=== PATIENT | female | born 1970 | race Caucasian/White ===

== ENCOUNTER → 2018-08-02 14:57 | Outpatient (CLI) | payer OTHER, SELFPAY ==
--- NOTE | 2018-08-02 | DI.MG.S_ITS ---
BILATERAL DIGITAL SCREENING MAMMOGRAM 3D/2D WITH CAD: 08/02/2018 CLINICAL: Routine screening. Family history of breast cancer. Comparison is made to exams dated: 07/26/2017 mammogram, 07/21/2016 mammogram, and 07/16/2015 mammogram - [facility]. The tissue of both breasts is heterogeneously dense. This may lower the sensitivity of mammography. Current study was also evaluated with a Computer Aided Detection (CAD) system. No significant masses, calcifications, or other findings are seen in either breast. There has been no significant interval change. IMPRESSION: NEGATIVE There is no mammographic evidence of malignancy. A 1 year screening mammogram is recommended. This exam was interpreted at Station ID: [id number]. NOTE: For mammograms, a report in lay terms will be sent to the patient. Approximately 15% of breast malignancies will not be visualized mammographically. In the management of a palpable breast mass, a negative mammogram must not discourage biopsy of a clinically suspicious lesion. Electronically Signed By: Kan fitch/kalpesh:08/02/2018 15:58:18 letter sent: Normal Exam ACR BI-RADS Category 1: Negative [id number]
== END ==
DX: Z12.31 Encounter for screening mammogram for malignant neoplasm of breast (principal); Z80.3 Family history of malignant neoplasm of breast
CPT/HCPCS: 77063; 77067

== ENCOUNTER 2019-02-22 06:40 | Day surgery (SDC) | payer OTHER, SELFPAY ==
[2019-02-12 08:31] VITALS: BMI 30.4
[2019-02-22] VITALS (11 sets, daily range): BP systolic 100–129; BP diastolic 53–77; PULSE 54–72; RESP 16–18; TEMP 36.4–36.8; O2SAT 90–100; BMI 30.4
--- NOTE | 2019-02-22 | PATH_ITS ---
[facility] Accession Number: [id number] . 01 Material submitted: . gallbladder - GALLBLADDER . 02 Diagnosis: Gallbladder, Laparoscopic Cholecystectomy: Chronic cholecystitis, cholesterolosis, and cholelithiasis. MRV/02/27/2019 . 02 Electronically signed: . Gwendolyn Denton MD, Pathologist NPI- [id number] . 01 Gross description: . Received in formalin, labeled gallbladder, is an intact gallbladder (length-8.2 cm, diameter-3.7 cm) with gonsalez-blue smooth shiny serosa and a patent cystic duct. No lymph nodes are identified. The lumen contains green watery bile and multiple pale yellow, friable round calculi (1.2 x 4.1 x 0.8 cm in aggregate). The mucosa is madrid-green smooth and flat. The wall is up to 0.1 cm thick. No nodules, masses or lesions are identified. Section code: (A1) cystic duct resection margin and two serial sections from the body; (A2) two longitudinal sections from the fundus. ([id number]) /MRV . 02 Pathologist provided ICD-10: K80.60 . 02 CPT . 924185 Performed at: 01 [facility] [address], [place], [place] [id number] MD Kan Cadena MD Phone: [phone] Performed at: 02 [facility] [address] [place], [place] [id number] MD Wendi Bauman MD Phone: [phone]
[2019-02-22] MEDS: LACTATED RINGERS 1,000 ML 100 ML IV (07:34)
--- NOTE | 2019-02-22 07:38 | PM.PREOP ---
Pre-operative Note Interval Note History & Physical reviewed/Exam performed by Physician: Yes Changes to H&P: No H&P completed within 30 days and has changed as indicated here:: please see office note from 01/25 for history and physical
[2019-02-22] MEDS: CEFAZOLIN 2 GM/100 ML FROZ.PIGGY IV (07:46)
[2019-02-22] MEDS: VANCOMYCIN 1,000 MG/200 ML FROZ.PIGGY 200 MG IV (08:03)
--- NOTE | 2019-02-22 08:18 | SUR.OPER ---
Supine on padded OR bed, head on pillow, arms secured on padded arm boards at <90 degrees abduction, legs uncrossed, safety belt at thigh, tape over blanket over lower legs. Footboard on.
[2019-02-22] MEDS: BUPIVACAINE 0.5% (PF) VIAL 30 ML INJ (08:28)
--- NOTE | 2019-02-22 09:21 | PM.OP.1 ---
Operative Date/Time/Diagnoses Date of procedure: 02/22/19 Time of procedure: 09:10 Pre-op diagnosis: Cholelithiasis cholecystitis Post-op diagnosis: same (Chronic inflammation of the gallbladder) Procedure & Clinicians Procedure: Laparoscopic cholecystectomy. Same procedure as scheduled: Yes Indications: Symptomatic gallbladder disease. Ultrasound showing stones and no ductal dilatation. Surgeon: Alexy Aguayo Click Yes if Unassisted: Yes Anesthesia Type: General Operative Notes Findings: Thickened gallbladder wall. Adhesion of omentum extensively to the surface. Multiple stones. Small cystic duct lumen. Closure Type: primary Specimen(s): other (Gallbladder) Prosthetic devices, grafts, tissues, transplants, or devices: None Estimated Blood Loss (mL): 5 Blood products transfused: none Procedure in detail: The patient was placed supine on the operating room table and underwent general endotracheal anesthesia. There prepped and draped in the usual fashion. Local anesthetic was infiltrated beneath the umbilicus and an incision made in the infraumbilical fold. It was carried down to the level of the peritoneum which was opened under direct vision. Stay sutures of 0 Vicryl were placed in the fascia. A 12 mm cannula was inserted and the abdomen was insufflated. The patient was repositioned and local anesthetic was infiltrated again beneath the right costal margin and three 5 mm ports were inserted. The gallbladder was identified and grasped and elevated. It was encased in omentum which was taken down with blunt dissection and cautery. I the end of the gallbladder was identified. A ductal structure singular nature going directly the gallbladder was seen. It was from surrounding structures and 3 clips were placed across it. It was divided leaving 2 in the patient. There was a small side branch of an artery. This had a clip applied to it prior to dividing the duct. The cystic artery was then identified from surrounding structures. Three clips were placed across it and was divided leaving 2 in the patient. The gallbladder was then dissected from its bed in the liver. It was detached and removed in a bag without difficulty. Meticulous hemostasis was achieved. The ports were all removed. The stay sutures at the umbilicus were tied. A 2 0 PDS suture was placed between the stay sutures. The wounds were all irrigated. The skin was closed with interrupted 4 0 Vicryl subcuticular stitches.[]. The patient tolerated the procedure well. She was awakened and taken the recovery room good condition. Complications: none Condition: stable Disposition: PACU Plan for aftercare: Follow-up in the office
[2019-02-22] MEDS: fentaNYL 100 MCG/2 ML INJ 50 MCG IV ×2 (09:27→09:32)
[2019-02-22] MEDS: HYDROMORPHONE 2 MG INJ 0.5 MG IV ×4 (09:40→10:00)
== END 2019-02-22 10:44 | disposition home or self-care (01) ==
PROVIDERS: PCP Family Medicine; Visit Provider Specialist
PROC: 0FT44ZZ Resection of Gallbladder, Percutaneous Endoscopic Approach (ICD-10-PCS; CPT 47562; principal; 2019-02-22 07:45)
DX: K80.10 Calculus of gallbladder with chronic cholecystitis without obstruction (principal); F41.9 Anxiety disorder, unspecified; F32.9 Major depressive disorder, single episode, unspecified
CPT/HCPCS: 47562; 88304; J0461; J0690; J1100; J1170; J1885; J2405; J2704; J3010; J3370

== ENCOUNTER 2019-03-10 12:56 | Emergency (ER) | payer OTHER, SELFPAY ==
--- NOTE | 2019-03-10 13:02 | DI.CT.S_ITS ---
PROCEDURE: CT KIDNEY URETER BLADDER (KUB) INDICATIONS: flank pain, distant history of stones TECHNIQUE: Noncontrast 5 mm thick sections acquired from the diaphragms to the symphysis. 5 mm thick coronal and sagittal reformats were then performed. For radiation dose reduction, the following was used: automated exposure control, adjustment of mA and/or kV according to patient size. COMPARISON: [facility], , [place] ABDOMEN, 01/12/2019, 9:31. FINDINGS: Image quality: Excellent. Lung bases: Lung bases are clear. Heart size is normal. Urinary system: There is a 3 mm obstructing stone seen within the distal left ureter at the ureterovesicular junction, as on series 4 image 38 and on series 2 image 78. There is associated moderate left-sided hydroureter and hydronephrosis. No right-sided hydronephrosis. Within the left kidney, there is a nonobstructing stone inferiorly that measures 6 mm, as on series 2 image 40. No right-sided nonobstructing stones are seen. Both kidneys are normal in size. Bladder wall thickness is normal; no calcified bladder stones. Other solid organs: Liver is normal in size. Gallbladder has been removed. Pancreas is normal in contours. Spleen is normal in size. No adrenal nodules. Peritoneum and bowel: Unenhanced bowel loops demonstrate normal wall thickness and caliber. No free fluid or air. Nodes and vessels: No retroperitoneal or mesenteric adenopathy by size criteria. Aorta and inferior vena cava are normal in caliber. Abdominal wall: No ventral hernias. Pelvis: No free pelvic fluid. No inguinal hernias or adenopathy. Bones: No suspicious bony lesions. No vertebral body compression fractures. IMPRESSION: 3 mm obstructing stone within the distal left ureter, at the ureterovesicular junction. There is associated moderate left-sided hydroureter and hydronephrosis. Nonobstructing 6 mm stone at the inferior pole of the left kidney. Incidental note is made of: Cholecystectomy Dictated by: Eron Boateng M.D. on 03/10/2019 at 12:39 Approved by: Eron Boateng M.D. on 03/10/2019 at 12:43
[2019-03-10 13:05] VITALS: BP 115/69; PULSE 71; RESP 18; TEMP 36.6; O2SAT 98
[2019-03-10] MEDS: KETOROLAC 60 MG/2 ML VIAL 15 MG IV (13:12)
[2019-03-10] MEDS: SODIUM CHLORIDE 0.9% 1,000 ML 1000 ML IV (13:13)
[2019-03-10 13:16] LABS: Add Manual Diff / Slide Review NO; Basophils Absolute Auto 0 /uL (0-100); Basophils Percent Auto 0.4 % (0-2); Eosinophils Absolute Auto 100 /uL (0-450); Eosinophils Percent Auto 0.8 % (2-4); Hematocrit 39.7 % (36-46); Hemoglobin 13.1 g/dL (12.0-16.0); Lymphocytes Absolute Auto 2000 /uL (1100-4500); Mean Corpuscular HGB Conc 32.9 % (30-36); Mean Corpuscular Hemoglobin 25.9 PG (26-34); Mean Corpuscular Volume 78.9 fL (80-100); Monocytes Absolute Auto 600 /uL (0-900); Monocytes Percent Auto 4.6 % (3-14); Neutrophils Absolute Auto 11300 /uL (1500-7000); Neutrophils Percent Auto 80.2 % (50-75); Platelet Count 304 X10^3/uL (150-400); Red Blood Cell Count 5.03 X10^6/uL (4.0-5.2); Red Cell Distribution Width 14.6 % (11.6-14.8); White Blood Cell Count 14.1 X10^3/uL (4.5-11.0)
--- NOTE | 2019-03-10 13:17 | ED.FEMALEGU ---
HPI - Female Genitourinary General Chief complaint: Urogenital-Female Stated complaint: states kidney stone problems Time Seen by Provider: 03/10/19 13:01 Source: patient and family Mode of arrival: ambulatory Limitations: no limitations History of Present Illness HPI Narrative: 48-year-old female nonsmoker presents with a chief complaint of flank pain consistent with prior episodes of kidney stone. She states it started on morning and is wrapping around to suprapubic region. She denies any fever or chills. She denies provocation or palliation of the pain. She denies any runny nose, sore throat or cough. MD Complaint: pelvic pain Onset (ago): day(s) Location: RLQ Female Urogenital Radiation: R Flank Severity: moderate Quality: Sharp Duration: intermittent Relieving factors: none Exacerbating factors: none Urinary symptoms: Difficulty Urinating Patient : No Related Data Home Medications Medication Instructions Recorded Confirmed clonidine HCl 0.2 mg PO HS #0 12/16/17 02/22/19 hydrocodone-acetaminophen 1 tab PO Q4HP PRN #0 12/16/17 02/22/19 ibuprofen 800 mg PO Q8H #0 12/16/17 02/22/19 methylphenidate HCl 54 mg PO QDAY #0 12/16/17 02/22/19 sertraline 200 mg PO QDAY #0 12/16/17 02/22/19 Previous Rx's Medication Instructions Recorded hydrocodone-acetaminophen [[place]] See Rx Instructions .ROUTE 02/22/19 .COMPLEX PRN #20 tab hydrocodone-acetaminophen 1 tab PO Q4-6H PRN #10 tab 03/10/19 ketorolac 10 mg PO Q6H PRN #14 tab 03/10/19 ondansetron 4 mg PO TID-QID PRN #10 tab 03/10/19 tamsulosin [Flomax] 0.4 mg PO DAILY #10 cap 03/10/19 Allergies Allergy/AdvReac Type Severity Reaction Status Date / Time No Known Drug Allergies Allergy Verified 03/10/19 13:13 Review of Systems Constitutional Denies chills, Denies fever(s), Denies lethargy and Denies weakness Eyes Denies change in vision, Denies eye discharge, Denies irritation and Denies loss of vision ENT Ears, Nose, Mouth, and Throat: Denies change in voice, Denies neck pain and Denies sore throat Cardiovascular Denies chest pain, Denies irregular heart rhythm, Denies lightheadedness, Denies palpitations, Denies dyspnea, Denies dyspnea on exertion and Denies orthopnea Respiratory Denies cough, Denies dyspnea, Denies dyspnea on exertion and Denies wheezing Gastrointestinal Gastrointestinal: Denies abdominal pain, Denies change in bowel habits, Denies diarrhea, Denies nausea and Denies vomiting Genitourinary Denies hematuria, Reports flank pain, Denies urinary incontinence, Reports urinary hesitancy and Denies urinary urgency Musculoskeletal Denies neck pain Integumentary/Breasts Denies pruritus, Denies erythema, Denies rash and Denies wounds Neurologic Denies confusion, Denies loss of vision and Denies weakness Psychiatric Denies anxiety, Denies confusion, Denies depression, Denies homicidal ideation and Denies suicidal ideation Endocrine Denies palpitations Hematologic/Lymphatic Denies easy bruising Allergic/Immunologic Denies wheezing PFSH Medical History Gall stone (Acute) 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) ADHD (Chronic) Anxiety (Chronic) Depression (Chronic) Kidney stones (Resolved) Surgical History Hx of lithotripsy (Acute) Status post hysteroscopic ablation of endometrium (Acute 12/19/17) H/O hernia repair (Resolved) Family History Mother Gallstones Grandmother Gallstones Diabetes mellitus Cancer Grandfather Cancer Social History marital status: unmarried,single household members: children Smoking Status: Never smoker alcohol intake: current substance use type: does not use Family History Mother Gallstones Grandmother Gallstones Diabetes mellitus Cancer Grandfather Cancer Social History marital status: unmarried,single household members: children Smoking Status: Never smoker alcohol intake: current substance use type: does not use Exam Narrative Exam Narrative: GENERAL: T 48-year-old female appears stated age, obviously uncomfortable HEAD: Atraumatic. Normocephalic. No temporal or scalp tenderness. EYES: Pupils equal round and reactive. Extraocular motions intact. No scleral icterus. No injection or drainage. ENT: Nose without bleeding, purulent drainage or septal hematoma. Throat without erythema, tonsillar hypertrophy or exudate. Uvula midline. Airway patent. NECK: Trachea midline. No JVD or lymphadenopathy. Supple, nontender, no meningeal signs. CARDIOVASCULAR: Regular rate and rhythm without murmurs, gallops, or rubs. RESPIRATORY: Clear to auscultation. Breath sounds equal bilaterally. No wheezes, rales, or rhonchi. GASTROINTESTINAL: Abdomen soft, non-tender, nondistended. No hepato-splenomegaly, or palpable masses. No guarding. EXTREMITIES: No clubbing, cyanosis, or edema. No joint tenderness, effusion, or edema noted. BACK: Nontender without deformity or crepitance. No flank tenderness. NEURO: AOx3. SKIN: No rash or erythema. Initial Vital Signs Initial Vital Signs: Vital Signs Temperature 97.8 F 03/10/19 13:05 Pulse Rate 71 03/10/19 13:05 Respiratory Rate 18 03/10/19 13:05 Blood Pressure 115/69 03/10/19 13:05 Pulse Oximetry 98 03/10/19 13:05 Course Orders Ordered: ED Orders 03/10/19 13:02 CT kidney ureter bladder (KUB) Stat 03/10/19 13:10 Basic Metabolic Panel Stat Complete Blood Count AUTO DIFF Stat 03/10/19 13:40 Urine Microscopic Stat Discontinued Medications Sodium Chloride (Normal Saline 0.9%) 1,000 mls @ 1,000 mls/hr IV BOLUS ONE Stop: 03/10/19 14:01 Last Infusion: 03/10/19 14:38 Dose: 0 mls/hr Admin: 03/10/19 13:13 Dose: 1,000 mls/hr Ketorolac Tromethamine (Toradol) 15 mg IV NOW ONE Stop: 03/10/19 13:03 Last Admin: 03/10/19 13:12 Dose: 15 mg Reevaluation(s) Reevaluation #1: near complete resolution of symptoms upon DC Vital Signs - 8 hr 03/10/19 13:05 03/10/19 14:41 Temperature 97.8 F Pulse Rate 71 77 Respiratory Rate 18 16 Blood Pressure 115/69 106/56 L Pulse Oximetry 98 97 MDM - Female Genitourinary Lab Data Result diagrams: 03/10/19 13:10 03/10/19 13:10 Lab Results 03/10/19 03/10/19 03/10/19 Range/Units 13:10 13:10 13:40 WBC 14.1 H (4.5-11.0) X10^3/uL RBC 5.03 (4.0-5.2) X10^6/uL Hgb 13.1 (12.0-16.0) g/dL Hct 39.7 (36-46) % MCV 78.9 L (80-100) fL MCH 25.9 L (26-34) PG MCHC 32.9 (30-36) % RDW 14.6 (11.6-14.8) % Plt Count 304 (150-400) X10^3/uL Neut % (Auto) 80.2 H (50-75) % Lymph % (Auto) 14.0 L (25-40) % [place] % (Auto) 4.6 (3-14) % Eos % (Auto) 0.8 L (2-4) % Baso % (Auto) 0.4 (0-2) % Neut # (Auto) 13402 H (8282-7793) /uL Lymph # (Auto) 2000 (2619-1480) /uL [place] # (Auto) 600 (0-900) /uL Eos # (Auto) 100 (0-450) /uL Baso # (Auto) 0 (0-100) /uL Sodium 140 (137-145) mmol/L Potassium 4.6 (3.4-5.1) mmol/L Chloride 107 (98-107) mmol/L Carbon Dioxide 24 (22-32) mmol/L BUN 15 (7-17) mg/dL Creatinine 0.60 (0.52-1.04) mg/dL Estimated GFR > 60.0 (>60) mL/min BUN/Creatinine Ratio 25.0 H (6-22) Glucose 131 H (70-100) mg/dL Calcium 9.6 (8.4-10.2) mg/dL Urine RBC 10-30/hpf H (0-5/HPF) Urine WBC 0-1/hpf (0-5/HPF) Ur Squamous Epith Cells 1-5 /hpf (0-5/HPF) Urine Bacteria Few (2-10) H (None) Urine Mucus 2+ H (Negative) Ur Culture Indicated? Cult not indicated Point of Care Testing Test Results Negative Urine Dip Bedside Urine Glucose Negative Bedside Urine Bilirubin - Negative Bedside Urine Ketone - Negative Urine Specific [place] 1.025 Bedside Urine Occult Blood +++ Bedside Urine pH 6.0 Bedside Urine Protein - Negative Bedside Urine Urobilinogen - Negative Bedside Urine Nitrite - Negative Bedside Urine Leukocytes - Negative Esterase Imaging Data CT scan - abdomen: Radiologist's impression: Chart Viewer Diagnostics DATE TYPE STATUS AUTHOR Hx 03/10/19 13:02 Eron Boateng 08/02/18 00:00 Brent LlanosWendi Fox 48, F111/01/1969 [facility] ER, ED.LOC - Main ED: R10 162.56cm 79.379kg BMI: 30.0kg/m? Urogenital-Female Search Chart No Data to Display Today 13:05 YanethWendi sanchez 48 F 1970 [place] [address] CT Scan Report Signed Patient: Wendi Wolfe LMR#: [id number] : 1970Acct:[id number] Age/Sex: 48 / FDate of Service: 03/10/19 Loc: ED Accession Number: [id number] Procedure: CT kidney ureter bladder (KUB) Ordering Provider: Wilfredo Mejia D.O. PROCEDURE: CT KIDNEY URETER BLADDER (KUB) INDICATIONS: flank pain, distant history of stones TECHNIQUE: Noncontrast 5 mm thick sections acquired from the diaphragms to the symphysis. 5 mm thick coronal and sagittal reformats were then performed. For radiation dose reduction, the following was used: automated exposure control, adjustment of mA and/or kV according to patient size. COMPARISON: [facility], , [place] ABDOMEN, 01/12/2019, 9:31. FINDINGS: Image quality: Excellent. Lung bases: Lung bases are clear. Heart size is normal. Urinary system: There is a 3 mm obstructing stone seen within the distal left ureter at the ureterovesicular junction, as on series 4 image 38 and on series 2 image 78. There is associated moderate left-sided hydroureter and hydronephrosis. No right-sided hydronephrosis. Within the left kidney, there is a nonobstructing stone inferiorly that measures 6 mm, as on series 2 image 40. No right-sided nonobstructing stones are seen. Both kidneys are normal in size. Bladder wall thickness is normal; no calcified bladder stones. Other solid organs: Liver is normal in size. Gallbladder has been removed. Pancreas is normal in contours. Spleen is normal in size. No adrenal nodules. Peritoneum and bowel: Unenhanced bowel loops demonstrate normal wall thickness and caliber. No free fluid or air. Nodes and vessels: No retroperitoneal or mesenteric adenopathy by size criteria. Aorta and inferior vena cava are normal in caliber. Abdominal wall: No ventral hernias. Pelvis: No free pelvic fluid. No inguinal hernias or adenopathy. Bones: No suspicious bony lesions. No vertebral body compression fractures. IMPRESSION: 3 mm obstructing stone within the distal left ureter, at the ureterovesicular junction. There is associated moderate left-sided hydroureter and hydronephrosis. Nonobstructing 6 mm stone at the inferior pole of the left kidney. Incidental note is made of: Cholecystectomy Dictated by: Eron Boateng M.D. on 03/10/2019 at 12:39 Approved by: Eron Boateng M.D. on 03/10/2019 at 12:43 Discharge Plan Departure Patient Disposition: Home Clinical Impression: Kidney stone on left side Discharge Date/Time: 03/10/19 14:41 Interventions: ED Discharge Assessment Last Done: 03/10/19 14:41 Instructions: DI for Kidney Stones Activity Restrictions/Additional Instructions: *You have been diagnosed with [left-sided ureteral stone] *What to do: *Take medications as directed *Follow up with your primary care provider in 2-3 days, call for an appointment. Let them know you were seen in the Emergency Department and that we ask that you be seen in follow up *Return to ER if you should have any new, worsening or concerning symptoms Prescriptions: New hydrocodone-acetaminophen 5-325 mg tablet 1 tab PO Q4-6H PRN (Reason: pain) Qty: 10 RF: 0 ketorolac 10 mg tablet 10 mg PO Q6H PRN (Reason: pain) Qty: 14 RF: 0 tamsulosin [Flomax] 0.4 mg capsule 0.4 mg PO DAILY Qty: 10 RF: 0 ondansetron 4 mg tablet,disintegrating 4 mg PO TID-QID PRN (Reason: nausea and vomiting) Qty: 10 RF: 0 No Action clonidine HCl 0.2 MG tablet 0.2 mg PO HS Qty: 0 RF: 0 ibuprofen 800 MG tablet 800 mg PO Q8H Qty: 0 RF: 0 hydrocodone-acetaminophen 5 MG/325 MG tablet 1 tab PO Q4HP PRN (Reason: Pain) Qty: 0 RF: 0 sertraline 100 MG tablet 200 mg PO QDAY Qty: 0 RF: 0 methylphenidate HCl 54 MG tablet extended release 24hr 54 mg PO QDAY Qty: 0 RF: 0 hydrocodone-acetaminophen [[place]] 5-325 mg tablet See Rx Instructions .ROUTE .COMPLEX PRN (Reason: painful procedure) Qty: 20 RF: 0 Referrals: Margarita Moore MD [Non-Staff] - Jessy Veliz MD [Primary Care Provider] -
--- NOTE | 2019-03-10 13:24 | ED_ITS ---
HPI - Female Genitourinary General Chief complaint: Urogenital-Female Stated complaint: states kidney stone problems Time Seen by Provider: 03/10/19 13:01 Source: patient and family Mode of arrival: ambulatory Limitations: no limitations History of Present Illness HPI Narrative: 48-year-old female nonsmoker presents with a chief complaint of flank pain consistent with prior episodes of kidney stone. She states it started on morning and is wrapping around to suprapubic region. She denies any fever or chills. She denies provocation or palliation of the pain. She denies any runny nose, sore throat or cough. MD Complaint: pelvic pain Onset (ago): day(s) Location: RLQ Female Urogenital Radiation: R Flank Severity: moderate Quality: Sharp Duration: intermittent Relieving factors: none Exacerbating factors: none Urinary symptoms: Difficulty Urinating Patient : No Related Data Home Medications Medication Instructions Recorded Confirmed clonidine HCl 0.2 mg PO HS #0 12/16/17 02/22/19 hydrocodone-acetaminophen 1 tab PO Q4HP PRN #0 12/16/17 02/22/19 ibuprofen 800 mg PO Q8H #0 12/16/17 02/22/19 methylphenidate HCl 54 mg PO QDAY #0 12/16/17 02/22/19 sertraline 200 mg PO QDAY #0 12/16/17 02/22/19 Previous Rx's Medication Instructions Recorded hydrocodone-acetaminophen [[place]] See Rx Instructions .ROUTE 02/22/19 .COMPLEX PRN #20 tab hydrocodone-acetaminophen 1 tab PO Q4-6H PRN #10 tab 03/10/19 ketorolac 10 mg PO Q6H PRN #14 tab 03/10/19 ondansetron 4 mg PO TID-QID PRN #10 tab 03/10/19 tamsulosin [Flomax] 0.4 mg PO DAILY #10 cap 03/10/19 Allergies Allergy/AdvReac Type Severity Reaction Status Date / Time No Known Drug Allergies Allergy Verified 03/10/19 13:13 Review of Systems Constitutional Denies chills, Denies fever(s), Denies lethargy and Denies weakness Eyes Denies change in vision, Denies eye discharge, Denies irritation and Denies loss of vision ENT Ears, Nose, Mouth, and Throat: Denies change in voice, Denies neck pain and Denies sore throat Cardiovascular Denies chest pain, Denies irregular heart rhythm, Denies lightheadedness, Denies palpitations, Denies dyspnea, Denies dyspnea on exertion and Denies orthopnea Respiratory Denies cough, Denies dyspnea, Denies dyspnea on exertion and Denies wheezing Gastrointestinal Gastrointestinal: Denies abdominal pain, Denies change in bowel habits, Denies diarrhea, Denies nausea and Denies vomiting Genitourinary Denies hematuria, Reports flank pain, Denies urinary incontinence, Reports urinary hesitancy and Denies urinary urgency Musculoskeletal Denies neck pain Integumentary/Breasts Denies pruritus, Denies erythema, Denies rash and Denies wounds Neurologic Denies confusion, Denies loss of vision and Denies weakness Psychiatric Denies anxiety, Denies confusion, Denies depression, Denies homicidal ideation and Denies suicidal ideation Endocrine Denies palpitations Hematologic/Lymphatic Denies easy bruising Allergic/Immunologic Denies wheezing PFSH Medical History Gall stone (Acute) 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) ADHD (Chronic) Anxiety (Chronic) Depression (Chronic) Kidney stones (Resolved) Surgical History Hx of lithotripsy (Acute) Status post hysteroscopic ablation of endometrium (Acute 12/19/17) H/O hernia repair (Resolved) Family History Mother Gallstones Grandmother Gallstones Diabetes mellitus Cancer Grandfather Cancer Social History marital status: unmarried,single household members: children Smoking Status: Never smoker alcohol intake: current substance use type: does not use Family History Mother Gallstones Grandmother Gallstones Diabetes mellitus Cancer Grandfather Cancer Social History marital status: unmarried,single household members: children Smoking Status: Never smoker alcohol intake: current substance use type: does not use Exam Narrative Exam Narrative: GENERAL: T 48-year-old female appears stated age, obviously uncomfortable HEAD: Atraumatic. Normocephalic. No temporal or scalp tenderness. EYES: Pupils equal round and reactive. Extraocular motions intact. No scleral icterus. No injection or drainage. ENT: Nose without bleeding, purulent drainage or septal hematoma. Throat without erythema, tonsillar hypertrophy or exudate. Uvula midline. Airway patent. NECK: Trachea midline. No JVD or lymphadenopathy. Supple, nontender, no men ingeal signs. CARDIOVASCULAR: Regular rate and rhythm without murmurs, gallops, or rubs. RESPIRATORY: Clear to auscultation. Breath sounds equal bilaterally. No wheezes, rales, or rhonchi. GASTROINTESTINAL: Abdomen soft, non-tender, nondistended. No hepato- splenomegaly, or palpable masses. No guarding. EXTREMITIES: No clubbing, cyanosis, or edema. No joint tenderness, effusion, or edema noted. BACK: Nontender without deformity or crepitance. No flank tenderness. NEURO: AOx3. SKIN: No rash or erythema. Initial Vital Signs Initial Vital Signs: Vital Signs Temperature 97.8 F 03/10/19 13:05 Pulse Rate 71 03/10/19 13:05 Respiratory Rate 18 03/10/19 13:05 Blood Pressure 115/69 03/10/19 13:05 Pulse Oximetry 98 03/10/19 13:05 Course Orders Ordered: ED Orders 03/10/19 13:02 CT kidney ureter bladder (KUB) Stat 03/10/19 13:10 Basic Metabolic Panel Stat Complete Blood Count AUTO DIFF Stat 03/10/19 13:40 Urine Microscopic Stat Discontinued Medications Sodium Chloride (Normal Saline 0.9%) 1,000 mls @ 1,000 mls/hr IV BOLUS ONE Stop: 03/10/19 14:01 Last Infusion: 03/10/19 14:38 Dose: 0 mls/hr Admin: 03/10/19 13:13 Dose: 1,000 mls/hr Ketorolac Tromethamine (Toradol) 15 mg IV NOW ONE Stop: 03/10/19 13:03 Last Admin: 03/10/19 13:12 Dose: 15 mg Reevaluation(s) Reevaluation #1: near complete resolution of symptoms upon DC Vital Signs - 8 hr 03/10/19 13:05 03/10/19 14:41 Temperature 97.8 F Pulse Rate 71 77 Respiratory Rate 18 16 Blood Pressure 115/69 106/56 L Pulse Oximetry 98 97 MDM - Female Genitourinary Lab Data Result diagrams: 03/10/19 13:10 03/10/19 13:10 Lab Results 03/10/19 03/10/19 03/10/19 Range/Units 13:10 13:10 13:40 WBC 14.1 H (4.5-11.0) X10^3/uL RBC 5.03 (4.0-5.2) X10^6/uL Hgb 13.1 (12.0-16.0) g/dL Hct 39.7 (36-46) % MCV 78.9 L (80-100) fL MCH 25.9 L (26-34) PG MCHC 32.9 (30-36) % RDW 14.6 (11.6-14.8) % Plt Count 304 (150-400) X10^3/uL Neut % (Auto) 80.2 H (50-75) % Lymph % (Auto) 14.0 L (25-40) % [place] % (Auto) 4.6 (3-14) % Eos % (Auto) 0.8 L (2-4) % Baso % (Auto) 0.4 (0-2) % Neut # (Auto) 32750 H (8649-5959) /uL Lymph # (Auto) 2000 (9607-7071) /uL [place] # (Auto) 600 (0-900) /uL Eos # (Auto) 100 (0-450) /uL Baso # (Auto) 0 (0-100) /uL Sodium 140 (137-145) mmol/L Potassium 4.6 (3.4-5.1) mmol/L Chloride 107 (98-107) mmol/L Carbon Dioxide 24 (22-32) mmol/L BUN 15 (7-17) mg/dL Creatinine 0.60 (0.52-1.04) mg/dL Estimated GFR > 60.0 (>60) mL/min BUN/Creatinine Ratio 25.0 H (6-22) Glucose 131 H (70-100) mg/dL Calcium 9.6 (8.4-10.2) mg/dL Urine RBC 10-30/hpf H (0-5/HPF) Urine WBC 0-1/hpf (0-5/HPF) Ur Squamous Epith Cells 1-5 /hpf (0-5/HPF) Urine Bacteria Few (2-10) H (None) Urine Mucus 2+ H (Negative) Ur Culture Indicated? Cult not indicated Point of Care Testing Test Results Negative Urine Dip Bedside Urine Glucose Negative Bedside Urine Bilirubin - Negative Bedside Urine Ketone - Negative Urine Specific [place] 1.025 Bedside Urine Occult Blood +++ Bedside Urine pH 6.0 Bedside Urine Protein - Negative Bedside Urine Urobilinogen - Negative Bedside Urine Nitrite - Negative Bedside Urine Leukocytes - Negative Esterase Imaging Data CT scan - abdomen: Radiologist's impression: Chart Viewer Diagnostics DATE TYPE STATUS AUTHOR Hx 03/10/19 13:02 KiloEron 08/02/18 00:00 LlanosWendi Basilio 48, F111/01/1969 [facility] ER, ED.LOC - Main ED: R10 162.56cm 79.379kg BMI: 30.0kg/m? Urogenital-Female Search Chart No Data to Display Today 13:05 Wendi Wolfe 48 F 1970 [place] [address] CT Scan Report Signed Patient: Wendi Wolfe LMR#: [id number] : 1970Acct:[id number] Age/Sex: 48 / FDate of Service: 03/10/19 Loc: ED Accession Number: [id number] Procedure: CT kidney ureter bladder (KUB) Ordering Provider: Wilfredo Mejia D.O. PROCEDURE: CT KIDNEY URETER BLADDER (KUB) INDICATIONS: flank pain, distant history of stones TECHNIQUE: Noncontrast 5 mm thick sections acquired from the diaphragms to the symphysis. 5 mm thick coronal and sagittal reformats were then performed. For radiation dose reduction, the following was used: automated exposure control, adjustment of mA and/or kV according to patient size. COMPARISON: [facility], , US ABDOMEN, 01/12/2019, 9:31. FINDINGS: Image quality: Excellent. Lung bases: Lung bases are clear. Heart size is normal. Urinary system: There is a 3 mm obstructing stone seen within the distal left ureter at the ureterovesicular junction, as on series 4 image 38 and on series 2 image 78. There is associated moderate left-sided hydroureter and hydronephrosis. No right-sided hydronephrosis. Within the left kidney, there is a nonobstructing stone inferiorly that measures 6 mm, as on series 2 image 40. No right-sided nonobstructing stones are seen. Both kidneys are normal in size. Bladder wall thickness is normal; no calcified bladder stones. Other solid organs: Liver is normal in size. Gallbladder has been removed. Pancreas is normal in contours. Spleen is normal in size. No adrenal nodules. Peritoneum and bowel: Unenhanced bowel loops demonstrate normal wall thickness and caliber. No free fluid or air. Nodes and vessels: No retroperitoneal or mesenteric adenopathy by size crite liana. Aorta and inferior vena cava are normal in caliber. Abdominal wall: No ventral hernias. Pelvis: No free pelvic fluid. No inguinal hernias or adenopathy. Bones: No suspicious bony lesions. No vertebral body compression fractures. IMPRESSION: 3 mm obstructing stone within the distal left ureter, at the ureterovesicular junction. There is associated moderate left-sided hydroureter and hydronephrosis. Nonobstructing 6 mm stone at the inferior pole of the left kidney. Incidental note is made of: Cholecystectomy Dictated by: Eron Boateng M.D. on 03/10/2019 at 12:39 Approved by: Eron Boateng M.D. on 03/10/2019 at 12:43 Discharge Plan Departure Patient Disposition: Home Clinical Impression: Kidney stone on left side Discharge Date/Time: 03/10/19 14:41 Interventions: ED Discharge Assessment Last Done: 03/10/19 14:41 Instructions: DI for Kidney Stones Activity Restrictions/Additional Instructions: *You have been diagnosed with [left-sided ureteral stone] *What to do: *Take medications as directed *Follow up with your primary care provider in 2-3 days, call for an appointment. Let them know you were seen in the Emergency Department and that we ask that you be seen in follow up *Return to ER if you should have any new, worsening or concerning symptoms Prescriptions: New hydrocodone-acetaminophen 5-325 mg tablet 1 tab PO Q4-6H PRN (Reason: pain) Qty: 10 RF: 0 ketorolac 10 mg tablet 10 mg PO Q6H PRN (Reason: pain) Qty: 14 RF: 0 tamsulosin [Flomax] 0.4 mg capsule 0.4 mg PO DAILY Qty: 10 RF: 0 ondansetron 4 mg tablet,disintegrating 4 mg PO TID-QID PRN (Reason: nausea and vomiting) Qty: 10 RF: 0 No Action clonidine HCl 0.2 MG tablet 0.2 mg PO HS Qty: 0 RF: 0 ibuprofen 800 MG tablet 800 mg PO Q8H Qty: 0 RF: 0 hydrocodone-acetaminophen 5 MG/325 MG tablet 1 tab PO Q4HP PRN (Reason: Pain) Qty: 0 RF: 0 sertraline 100 MG tablet 200 mg PO QDAY Qty: 0 RF: 0 methylphenidate HCl 54 MG tablet extended release 24hr 54 mg PO QDAY Qty: 0 RF: 0 hydrocodone-acetaminophen [[place]] 5-325 mg tablet See Rx Instructions .ROUTE .COMPLEX PRN (Reason: painful procedure) Qty: 20 RF: 0 Referrals: Margarita Moore MD [Non-Staff] - Jessy Veliz MD [Primary Care Provider] -
[2019-03-10 13:26] LABS: Blood Urea Nitrogen 15 mg/dL (7-17); Calcium 9.6 mg/dL (8.4-10.2); Carbon Dioxide 24 mmol/L (22-32); Chloride 107 mmol/L (98-107); Estimated Glomerular Filt Rate > 60.0 mL/min (>60); Glucose 131 mg/dL (70-100); HEMOLYSIS 47 (0-50); Potassium 4.6 mmol/L (3.4-5.1); Sodium 140 mmol/L (137-145)
[2019-03-10 14:02] LABS: Bacteria Urine Few (2-10); Culture Indicated Urine Cult Not Indicated; Mucus Urine 2+ (Negative); RBC Urine 10-30/HPF (0-5/HPF); Squamous Epithelial Cell Urine 1-5 /HPF (0-5/HPF); WBC Urine 0-1/HPF (0-5/HPF)
[2019-03-10 14:41] VITALS: BP 106/56; PULSE 77; RESP 16; O2SAT 97
== END 2019-03-10 14:41 | disposition home or self-care (01) ==
PROVIDERS: Emergency Provider Emergency Medicine; PCP Family Medicine
DX: N20.0 Calculus of kidney (principal)
CPT/HCPCS: 36591; 74176; 80048; 81003; 81015; 81025; 85025; 96361; 96374; 99283; 99284; J1885

== ENCOUNTER → 2019-05-08 13:04 | Outpatient (CLI) | payer OTHER, SELFPAY ==
--- NOTE | 2019-05-08 | DI.RAD.S_ITS ---
PROCEDURE: XR ABDOMEN 1V INDICATIONS: KIDNEY STONES TECHNIQUE: One view of the abdomen acquired. COMPARISON: [facility], CT, CT KIDNEY URETER BLADDER (KUB), 03/10/2019, 13:11. FINDINGS: Surgical changes and devices: None. Bowel: Bowel gas pattern is normal. Soft tissues: No new suspicious abdominal calcifications. A 5 mm calculus is present at the lower third collecting system of the left kidney, and no calculus is found along the course of the ureters or bladder area. Visualized solid organ contours appear normal in size. Bones: No suspicious bony lesions. IMPRESSION: The previously present lower third left renal collecting system calculus seen by CT scanning 03/10/19 remains and no distal ureteral stone is identified. Dictated by: Andrew Caban M.D. on 05/08/2019 at 13:35 Approved by: Andrew Caban M.D. on 05/08/2019 at 13:36
== END ==
PROVIDERS: PCP Family Medicine; Visit Provider Urology
DX: N20.0 Calculus of kidney (principal)
CPT/HCPCS: 74018

== ENCOUNTER → 2019-12-03 11:10 | Outpatient (CLI) | payer OTHER, SELFPAY ==
--- NOTE | 2019-12-03 | DI.RAD.S_ITS ---
PROCEDURE: XR HIP W PEL IF DONE LT 2V INDICATIONS: SEVERE LUMBAR PELVIC PAIN W/NUMBNESS OF LEFT TO FOOT TECHNIQUE: AP pelvis with lateral view(s) of the left hip(s). COMPARISON: None. FINDINGS: Bones: No fractures or dislocations. Pelvic ring appears intact. No evidence of avascular necrosis of femoral head. No suspicious bony lesions. Soft tissues: The visualized bowel gas pattern is normal. No suspicious soft tissue calcifications. IMPRESSION: Unremarkable radiographic examination of pelvis and left hip. Dictated by: Dustin Call M.D. on 12/03/2019 at 12:59 Approved by: Dustin Call M.D. on 12/03/2019 at 13:00
--- NOTE | 2019-12-03 | DI.RAD.S_ITS ---
PROCEDURE: XR FEMUR LT MIN 2V INDICATIONS: SEVERE LUMBAR PELVIC PAIN W/NUMBNESS OF LEFT TO FOOT TECHNIQUE: 4 views of the femur were acquired. COMPARISON: None. FINDINGS: Bones: No fractures or dislocations. No suspicious bony lesions. Soft tissues: No suspicious soft tissue calcifications or masses. IMPRESSION: No femoral fracture or dislocation. No evidence of avascular necrosis of femoral head. No gross soft tissue abnormality. Dictated by: Dustin Call M.D. on 12/03/2019 at 12:56 Approved by: Dustin Call M.D. on 12/03/2019 at 12:59
--- NOTE | 2019-12-03 | DI.RAD.S_ITS ---
PROCEDURE: XR LUMBAR SPINE 2-3V INDICATIONS: SEVERE LUMBAR PELVIC PAIN W/NUMBNESS OF LEFT TO FOOT TECHNIQUE: 3 views of the lumbar spine were acquired. COMPARISON: None. FINDINGS: Bones: 5 llu-ude-domcvol vertebrae are present. There is mild straightening of normal lumbar lordosis. Degenerative endplate changes and bilateral facet arthrosis at L4-5 and L5-S1 levels are seen. No vertebral body compression fractures. No suspicious bony lesions. Soft tissues: Overlying bowel gas pattern is normal. No suspicious soft tissue calcifications. IMPRESSION: Mild degenerative disc disease in lower lumbar spine. No fracture or dislocation. Dictated by: Dustin Call M.D. on 12/03/2019 at 13:00 Approved by: Dustin Call M.D. on 12/03/2019 at 13:00
== END ==
PROVIDERS: PCP Family Medicine
DX: S33.8XXA Sprain of other parts of lumbar spine and pelvis, initial encounter (principal)
CPT/HCPCS: 72100; 73502; 73552

== ENCOUNTER → 2022-11-16 15:12 | Outpatient (CLI) | payer OTHER, SELFPAY ==
--- NOTE | 2022-11-16 | DI.CT.S_ITS ---
PROCEDURE: CT SOFT TISSUE NECK W CON INDICATIONS: NECK MASS/NECK PAIN TECHNIQUE: After the administration of intravenous contrast, 3.0 mm axial sections acquired from the sella to the aortic arch. Additional oblique axial 3.0 mm sections acquired through the pharynx. 3 mm thick coronal and sagittal reformats were generated. For radiation dose reduction, the following was used: automated exposure control. COMPARISON: None. FINDINGS: Image quality: Excellent. Lymph nodes: No enlarged lymph nodes seen throughout the neck. Vessels: Visualized vasculature appears patent. Neck spaces: Scrutiny is given to the area of marked clinical concern involving the left lateral neck. At this site, there is a normal sternocleidomastoid muscle seen, without masses or abnormal enhancement. The oropharynx, nasopharynx, and pharynx demonstrate no mucosal lesions. The vocal cords, false vocal cords, pyriform sinuses, epiglottis, vallecula, and tongue base all appear normal. Extramucosal spaces appear unremarkable. Glands: The parotid and submandibular glands appear normal. Thyroid gland demonstrates no significant abnormality. Miscellaneous: Visualized brain and orbits appear normal. Lung apices appear clear. Superficial soft tissues appear normal. Bones: No suspicious bony lesions. Visualized sinuses and mastoids appear unremarkable. IMPRESSION: No masses or abnormal enhancement can be seen at the marked area of clinical concern involving the left lateral neck. No masses or enlarged lymph nodes can be seen elsewhere. Dictated by: Eron Boateng M.D. on 11/16/2022 at 17:26 Approved by: Eron Boateng M.D. on 11/16/2022 at 17:28
== END ==
PROVIDERS: Referring Provider Otolaryngology; Visit Provider Otolaryngology
DX: M54.2 Cervicalgia (principal); R22.1 Localized swelling, mass and lump, neck
CPT/HCPCS: 70491